=== PATIENT | male | born 1960 | race African-American/Black ===

== ENCOUNTER 2023-11-25 14:07 | Observation (INO) | payer OTHER ==
[2023-11-25 14:35] VITALS: BMI 27.6
[2023-11-25] MEDS ORDERED: Senokot S 8.6-50 MG TAB PO PRN (14:36)
[2023-11-25] MEDS ORDERED: Ondansetron ODT 4 MG TAB PO PRN (14:36)
[2023-11-25] MEDS ORDERED: Calcium Carbonate 500 MG ChewTAB PO PRN (14:36)
[2023-11-25] MEDS ORDERED: Dextrose 50% Abboject 50 ML SYRINGE SLOW IVP PRN (14:40)
[2023-11-25] MEDS ORDERED: Dextrose 5% in Water 1,000 ML IV PRN (14:40)
[2023-11-25] MEDS ORDERED: HumaLOG 300 UNITS/3 ML VIAL SC PRN (14:40)
[2023-11-25] MEDS ORDERED: Glucagon 1 MG/ML KIT IM PRN (14:40)
[2023-11-25] MEDS ORDERED: Morphine 2 MG/ML VIAL SLOW IVP PRN (15:00)
[2023-11-25] MEDS: Nitroglycerin 2% Ointment 1 INCH/1 GM Packet TOP SCH (15:31)
[2023-11-25] MEDS: Furosemide 40 MG (4 mL) VIAL SLOW IVP SCH (15:31)
[2023-11-25 15:55] LABS: Troponin I 0.032 ng/mL (< 0.028)
[2023-11-25] MEDS: Carvedilol 6.25 MG TAB PO SCH (16:58)
[2023-11-25 19:21] LABS: Troponin I 0.043 ng/mL (< 0.028)
[2023-11-25] MEDS: Gabapentin 300 MG CAP PO SCH (20:08)
[2023-11-25] MEDS: tiZANidine HCl 4 MG TAB PO SCH (20:09)
[2023-11-25] MEDS: hydrALAZINE 25 MG TAB PO SCH (20:09)
[2023-11-26 03:46] LABS: #Basophils Less than 0.03 10x3/uL (0.0-0.2); %Basophils 0.3 % (0.0-1.0); %Eosinophils 2.5 % (0.0-10.0); %Monocytes 6.9 % (0.0-10.0); %Neutrophils 57.1 % (42.0-75.0); Hematocrit 41.8 % (42.0-52.0); Hemoglobin 13.6 g/dL (14.0-18.0); Mean Corpuscular HGB CONC 32.5 g/dL (32.0-36.0); Mean Corpuscular Hemoglobin 24.2 pg (27.0-31.0); Mean Corpuscular Volume 74.4 fL (78.0-98.0); Platelet Count 164 10x3/uL (130-400); RBC Distribution Width 14.9 % (11.5-14.5); Red Blood Cell (RBC) Count 5.62 mill/uL (4.70-6.10)
[2023-11-26 04:20] LABS: A1c 214.213 g/dL; Hb (HGBA1c) 4257.7776 umol/L; Hemoglobin A1c 6.8 % (4.0-6.0)
[2023-11-26 04:22] LABS: ALT (SGPT) 25 U/L (8-55); AST (SGOT) 22 U/L (5-34); Albumin 3.6 g/dL (3.4-4.8); Alkaline Phosphatase 60 U/L (40-110); Anion Gap 14 mmol/L (10-20); BUN (Urea Nitrogen) 29 mg/dL (8.4-25.7); Bilirubin, Total 0.6 mg/dL (0.2-1.2); Calc. Creatinine Clearance 61 mL/min (70-130); Calcium 10.1 mg/dL (7.8-10.44); Carbon Dioxide 19 mmol/L (23-31); Cardiac Risk 5.8 (Less than 4.5); Chloride 108 mmol/L (98-107); Cholesterol 168 mg/dl (< 200 Desired); Estimated GFR 46; Globulin 3.5 g/dL (2.4-3.5); Glucose 141 mg/dL (80-115); HDL Cholesterol 29 mg/dL (>60 Neg Risk); LDL Cholesterol, Calculated 109 mg/dL; Magnesium 2.2 mg/dL (1.6-2.6); Potassium 3.4 mmol/L (3.5-5.1); Protein, Total 7.1 g/dL (5.8-8.1); Sodium 138 mmol/L (136-145); Triglycerides 150 mg/dL (Less than 150)
[2023-11-26] MEDS: glipiZIDE 5 MG TAB PO SCH (06:44)
[2023-11-26] MEDS: Furosemide 40 MG (4 mL) VIAL SLOW IVP SCH (06:45)
[2023-11-26] MEDS: Acetaminophen 325 MG TAB PO PRN (06:45)
[2023-11-26] MEDS ORDERED: glipiZIDE XL 2.5 mg ER.TAB PO SCH (08:00)
[2023-11-26] MEDS: Empagliflozin 10 MG TAB PO SCH (08:17)
[2023-11-26] MEDS: Amlodipine 10 MG TAB PO SCH (08:17)
[2023-11-26] MEDS: Nitroglycerin 2% Ointment 1 INCH/1 GM Packet TOP SCH (08:18)
[2023-11-26] MEDS: Aspirin 81 mg Enteric Coated Tablet PO SCH (08:18)
[2023-11-26] MEDS: Fenofibrate 48 MG TAB PO SCH (08:18)
[2023-11-26] MEDS: Enoxaparin 40 MG (0.4 mL) SYRINGE SC SCH (08:19)
[2023-11-26] MEDS ORDERED: Amiodarone 200 MG TAB PO SCH (09:00)
[2023-11-26] MEDS: HumaLOG 300 UNITS/3 ML VIAL SC PRN (12:30)
[2023-11-26] MEDS: traMADol HCl 50 MG TAB PO PRN (20:32)
[2023-11-27 05:09] LABS: #Basophils 0.03 10x3/uL (0.0-0.2); %Basophils 0.5 % (0.0-1.0); %Eosinophils 2.7 % (0.0-10.0); %Lymphocytes 26.2 % (21.0-51.0); %Monocytes 8.8 % (0.0-10.0); %Neutrophils 61.6 % (42.0-75.0); Hematocrit 42.2 % (42.0-52.0); Hemoglobin 13.8 g/dL (14.0-18.0); Mean Corpuscular HGB CONC 32.7 g/dL (32.0-36.0); Mean Corpuscular Hemoglobin 24.1 pg (27.0-31.0); Mean Corpuscular Volume 73.8 fL (78.0-98.0); Platelet Count 156 10x3/uL (130-400); RBC Distribution Width 14.9 % (11.5-14.5); Red Blood Cell (RBC) Count 5.72 mill/uL (4.70-6.10)
[2023-11-27 05:21] LABS: Anion Gap 16 mmol/L (10-20); BUN (Urea Nitrogen) 36 mg/dL (8.4-25.7); Calc. Creatinine Clearance 58 mL/min (70-130); Calcium 10.3 mg/dL (7.8-10.44); Carbon Dioxide 22 mmol/L (23-31); Chloride 104 mmol/L (98-107); Estimated GFR 42; Glucose 157 mg/dL (80-115); Potassium 3.8 mmol/L (3.5-5.1); Sodium 138 mmol/L (136-145)
[2023-11-27] MEDS ORDERED: cloNIDine 0.1 MG TAB PO SCH (09:00)
[2023-11-28 04:25] LABS: #Basophils 0.05 10x3/uL (0.0-0.2); %Basophils 0.7 % (0.0-1.0); %Eosinophils 2.6 % (0.0-10.0); %Lymphocytes 29.4 % (21.0-51.0); %Monocytes 8.5 % (0.0-10.0); %Neutrophils 58.5 % (42.0-75.0); Hematocrit 43.8 % (42.0-52.0); Hemoglobin 14.2 g/dL (14.0-18.0); Mean Corpuscular HGB CONC 32.4 g/dL (32.0-36.0); Mean Corpuscular Hemoglobin 24.1 pg (27.0-31.0); Mean Corpuscular Volume 74.2 fL (78.0-98.0); Mean Platelet Volume 11.6 fL (7.4-10.4); Platelet Count 171 10x3/uL (130-400); RBC Distribution Width 14.8 % (11.5-14.5)
[2023-11-28 04:39] LABS: Anion Gap 14 mmol/L (10-20); BUN (Urea Nitrogen) 35 mg/dL (8.4-25.7); Calc. Creatinine Clearance 64 mL/min (70-130); Calcium 10.4 mg/dL (7.8-10.44); Carbon Dioxide 24 mmol/L (23-31); Chloride 104 mmol/L (98-107); Estimated GFR 46; Glucose 119 mg/dL (80-115); Potassium 4.3 mmol/L (3.5-5.1); Sodium 138 mmol/L (136-145)
[2023-11-28] MEDS: Furosemide 20 MG TAB PO SCH (08:09)
[2023-11-28 12:00] VITALS: BP 161/88; TEMP 97.6
== END 2023-11-28 13:04 | disposition home or self-care (01) ==
LOC: 2SW 14:07
PROVIDERS: ADMIT Internal Medicine; ATTEND Family Medicine
DX: R06.02 Shortness of breath (principal); E11.42 Type 2 diabetes mellitus with diabetic polyneuropathy; E78.5 Hyperlipidemia, unspecified; I25.10 Atherosclerotic heart disease of native coronary artery without angina pectoris; I13.0 Hypertensive heart and chronic kidney disease with heart failure and stage 1 through stage 4 chronic kidney disease, or unspecified chronic kidney disease; I50.33 Acute on chronic diastolic (congestive) heart failure; N18.9 Chronic kidney disease, unspecified; R00.0 Tachycardia, unspecified; E11.22 Type 2 diabetes mellitus with diabetic chronic kidney disease; R07.89 Other chest pain; Z79.84 Long term (current) use of oral hypoglycemic drugs; Z79.899 Other long term (current) drug therapy; Z79.82 Long term (current) use of aspirin
CPT/HCPCS: 36415; 36416; 71045; 78451; 80048; 80053; 80061; 83036; 83735; 83880; 84484; 85025; 93005; 93010; 93306; 93798; 96372; 96374; 96376; A9502; G0378; J1650; J1940

== ENCOUNTER 2025-06-17 07:39 | Outpatient (CLI) | payer MEDICARE, MEDICAID | END 2025-06-17 07:40 | disposition home or self-care (01) | LOC: SCSULT 07:39 | PROVIDERS: ATTEND Physician Assistant Medical | DX: K59.00 Constipation, unspecified (principal); K74.60 Unspecified cirrhosis of liver; R16.0 Hepatomegaly, not elsewhere classified; R19.8 Other specified symptoms and signs involving the digestive system and abdomen; Z86.19 Personal history of other infectious and parasitic diseases; Z86.0100 Personal history of colon polyps, unspecified | CPT/HCPCS: 76705 ==